=== PATIENT | male | born 1960 | race African-American/Black ===

== ENCOUNTER 2021-04-01 03:58 | Emergency (ER) | payer MEDICAID, OTHER ==
[~2021-04-01] VITALS: Ht 175.3 cm; Wt 102.0 kg
[2021-04-01] MEDS ORDERED: AMLODIPINE 5MG TABLET PO SCH (04:45)
[2021-04-01 04:54] LABS: BASOPHILS % 0.8 % (0.0-2.0); CHLORIDE 109 mEq/L (98-107); EOSINOPHILS % 1.4 % (0.0-5.0); HEMATOCRIT. 36.8 % (42.0-52.0); HEMOGLOBIN. 12.2 g/dL (14.0-18.0); LYMPHOCYTES % 41.9 % (20.0-50.0); MEAN CORPUSCULAR HEMOGLOBIN 26.4 pg (28.0-32.0); MEAN CORPUSCULAR VOLUME 79.3 fL (80.0-94.0); MEAN PLATELET VOLUME 9.1 fl (7.4-10.4); MONOCYTES % 7.4 % (2.0-8.0); NEUTROPHILS % 48.5 % (40.0-76.0); PLATELET 164 x1000/uL (130-400); RED BLOOD CELL COUNT 4.64 mill/uL (4.7-6.1); RED CELL DISTRIBUTION WIDTH 14.1 % (11.6-14.6)
[2021-04-01] MEDS ORDERED: ASPIRIN 325MG EC TABLET PO ONE (06:30)
[2021-04-01] MEDS ORDERED: AMPICILLIN SOD/SULBACTAM NA 1.5 G in SODIUM CHLORIDE 0.9% 50 ML IV SCH (13:30)
[2021-04-01 14:10] VITALS: BP 159/88
== END 2021-04-01 14:55 | disposition admitted as inpatient to this hospital (09) ==
LOC: ER 03:58 → ENRESERV 14:24 → CANRESERV 14:24 → ER 14:55 → CANBEDREQ 15:05
DX: R20.0 Anesthesia of skin (principal); I10 Essential (primary) hypertension; E11.9 Type 2 diabetes mellitus without complications
CPT/HCPCS: 36415; 71045; 80053; 82962; 83880; 84484; 85025; 93005; 99285; J0295